=== PATIENT | female | born 1975 | race Caucasian/White ===

== ENCOUNTER → 2018-04-08 16:59 | Outpatient (CLI) | payer OTHER, SELFPAY ==
[2018-04-12 18:53] LABS: HPV APTIMA, High Risk Negative (Negative)
== END ==
PROVIDERS: Family Provider Student in an Organized Health Care Education/Training Program; PCP Student in an Organized Health Care Education/Training Program; Referring Provider Nurse Practitioner Women's Health; Visit Provider Nurse Practitioner Women's Health
DX: Z12.4 Encounter for screening for malignant neoplasm of cervix (principal)
CPT/HCPCS: 88175; G0145

== ENCOUNTER → 2018-07-20 09:44 | Outpatient (CLI) | payer OTHER, SELFPAY ==
--- NOTE | 2018-07-20 09:46 | BI_ITS ---
MAMMOGRAPHY - BILATERAL SCREENING REASON FOR EXAM: Female, 42 years old. Routine annual screening examination. PERTINENT HISTORY: Non-contributory. Remote left excisional breast biopsy. TECHNIQUE: Digital bilateral breast avery (3D mammographic acquisition) in the CC and MLO projections. 2-D mediolateral oblique (MLO) and craniocaudad (CC) views of both breasts were obtained. CAD: Full Field Digital Mammography with Computer Added Detection was performed. COMPARISON: Comparison is made with prior examination dated September 23, 2015 and September 15, 2013.. FINDINGS: Breast Composition: The breasts are extremely dense, which lowers the sensitivity of mammography. Surgical clips are seen in the axillary region of the left breast. This is unchanged. There is a 3.3 cm x 5.9 cm rounded well-defined nodular density in the superior retroareolar region of the right breast. Correlation with ultrasound is recommended. No other significant abnormalities are identified. BI/SCREENING MAMM (CAD), BILAT IMPRESSION: Stable appearance of the left breast. Findings suggestive by 5.9 cm x 3.3 cm rounded nodular density in the superior retroareolar region of the right breast. Correlation with ultrasound is recommended. ASSESSMENT CATEGORY: BIRADS Category 0: Incomplete. Need additional imaging evaluation. A letter regarding these results will be sent to the patient by the facility within 30 days. Approximately 10% of breast cancers are not detected by mammography. A normal mammogram should not delay biopsy of a clinically suspicious abnormality. [id number] Electronically Signed: Damian Rivera MD at 8:24 EST Tel [phone], Service support ,
== END ==
PROVIDERS: Family Provider Student in an Organized Health Care Education/Training Program; PCP Student in an Organized Health Care Education/Training Program; Referring Provider Obstetrics & Gynecology; Visit Provider Obstetrics & Gynecology
DX: Z12.31 Encounter for screening mammogram for malignant neoplasm of breast (principal)
CPT/HCPCS: 77063; 77067

== ENCOUNTER → 2018-07-26 15:19 | Outpatient (CLI) | payer OTHER, SELFPAY ==
--- NOTE | 2018-07-26 15:35 | US_ITS ---
STUDY: ULTRASOUND BREAST - RIGHT REASON FOR EXAM: Female, 42 years old. Abnormal screening mammogram. TECHNIQUE: Axial and longitudinal images of the RIGHT breast were performed with a high resolution ultrasound transducer. COMPARISON: Comparison is made with prior mammogram dated July 20, 2018. FINDINGS: RIGHT Breast: The mammographic abnormality corresponds to a 5.4 cm x 4 cm x 2 cm cyst. This is at the 12:00 position breast at 2 cm from the nipple. Small septation is seen. US/Breast Limited Unilateral IMPRESSION: The mammographic abnormality corresponds to a 5.4 cm x 4 cm x 2 cm cyst. ASSESSMENT CATEGORY: BIRADS Category 2: Benign. A letter regarding these results will be sent to the patient by the facility within 30 days. Electronically Signed: Damian Rivera MD at 9:08 EST Tel [phone], Service support ,
--- OUTSIDE RECORDS SUMMARY | 2018-09-30 05:22 | XMS RPT_ITS ---
:1975 Author Organization [facility] Care Team Providers Name Role Phone Christina Alvarez Attending Unavailable Dhruv Bateman Primary Care Unavailable Christina Alvarez Referring Unavailable Christina Alvarez Attending Unavailable Bateman, Dhruv Referring Unavailable Vicki Kwok Attending Unavailable Bateman, Dhruv Primary Care Unavailable Vicki Kwok Referring Unavailable Christina Alvarez Attending Unavailable Christina Alvarez Referring Unavailable Bateman, Dhruv Primary Care Unavailable PROBLEMS PROBLEMS DATE TYPE CONDITION / CODE ATTENDING STATUS SOURCE 04/09/2018 Unknown Z12.4 - Vicki Kwok Active [facility] Encounter for Community screening for Hospital malignant Repository neoplasm of cervix / Z12.4(ICD-10) PROCEDURES PROCEDURES No Procedure Records FoundRESULTS RESULTS BREAST LIMITED Observed: 07/26/2018 Status: F Source: [place] UNILATERAL 3:35 PM [facility] REPOSITORY [facility] Imaging Services [address] [place] [address] Breast Limited Unilateral MR#: [id number] Acct: [id number] Name: CECILIA BENTON Rep #: [id number] : 1975 F 42 From: Damian Rivera MD PCP: Dhruv Melgar DO Status: REG CLI Study: Breast Limited Unilateral Date of Exam: 07/26/18 Exam# [id number] Ordering Dr: Christina Alvarez MD STUDY: ULTRASOUND BREAST - RIGHT REASON FOR EXAM: Female, 42 years old. Abnormal screening mammogram. TECHNIQUE: Axial and longitudinal images of the RIGHT breast were performed with a high resolution ultrasound transducer. COMPARISON: Comparison is made with prior mammogram dated July 20, 2018. FINDINGS: RIGHT Breast: The mammographic abnormality corresponds to a 5.4 cm x 4 cm x 2 cm cyst. This is at the 12:00 position breast at 2 cm from the nipple. Small septation is seen. US/Breast Limited Unilateral IMPRESSION: The mammographic abnormality corresponds to a 5.4 cm x 4 cm x 2 cm cyst. ASSESSMENT CATEGORY: BIRADS Category 2: Benign. A letter regarding these results will be sent to the patient by the facility within 30 days. Electronically Signed: Damian Rivera MD at 9:08 EST Tel [phone], Service support , CC: Dhruv Melgar DO; Christina Alvarez MD Musical Instrument Supervisor: Signed SCREENING MAMM (CAD), Observed: 07/20/2018 Status: F Source: [place] BILAT 9:46 AM [facility] REPOSITORY [facility] Imaging Services [address] [place] [address] SCREENING MAMM (CAD), BILAT MR#: [id number] Acct: [id number] Name: CECILIA BENTON Rep #: [id number] : 1975 F 42 From: Damian Rivera MD PCP: Dhruv Melgar, DO Status: [facility] CLI Study: SCREENING MAMM (CAD), BILAT Date of Exam: 07/20/18 Exam# [id number] Ordering Dr: Christina Alvarez MD MAMMOGRAPHY - BILATERAL SCREENING REASON FOR EXAM: Female, 42 years old. Routine annual screening examination. PERTINENT HISTORY: Non-contributory. Remote left excisional breast biopsy. TECHNIQUE: Digital bilateral breast avery (3D mammographic acquisition) in the CC and MLO projections. 2-D mediolateral oblique (MLO) and craniocaudad (CC) views of both breasts were obtained. CAD: Full Field Digital Mammography with Computer Added Detection was performed. COMPARISON: Comparison is made with prior examination dated September 23, 2015 and September 15, 2013.. FINDINGS: Breast Composition: The breasts are extremely dense, which lowers the sensitivity of mammography. Surgical clips are seen in the axillary region of the left breast. This is unchanged. There is a 3.3 cm x 5.9 cm rounded well-defined nodular density in the superior retroareolar region of the right breast. Correlation with ultrasound is recommended. No other significant abnormalities are identified. BI/SCREENING MAMM (CAD), BILAT IMPRESSION: Stable appearance of the left breast. Findings suggestive by 5.9 cm x 3.3 cm rounded nodular density in the superior retroareolar region of the right breast. Correlation with ultrasound is recommended. ASSESSMENT CATEGORY: BIRADS Category 0: Incomplete. Need additional imaging evaluation. A letter regarding these results will be sent to the patient by the facility within 30 days. Approximately 10% of breast cancers are not detected by mammography. A normal mammogram should not delay biopsy of a clinically suspicious abnormality. 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 [place] [address] OFFICE VISIT Date of Service: 04/08/18 MR#: [id number] Acct: [id number] Name: CECILIA BENTON Rep #: [id number] : 1975 Provider: Christina Alvarez MD Age/Sex: 42/F Location: [facility] [place] Status: Signed Intake Vital Signs04/08/18 Height 5 ft 04/08/18 Weight: 141 lb 2 oz 04/08/18 Body Mass Index (BMI) 27.6 04/08/18 Blood Pressure 120/78 Intake Visit Reasons: ANNUAL - [facility] Backup Administrator Required: No Is patient in pain?: No Allergies cephalexin monohydrate [From Keflex] Allergy (Verified 04/08/18 14:07) Hives Medications Aspirin [Aspirin, Baby] 81 mg PO DAILY@0800 #90 tab.chew 04/10/14 [Rx Confirmed 04/08/18] Atorvastatin Calcium [Lipitor] 10 mg PO QHS #90 tab 04/10/14 [Rx Confirmed 05/07/14] Clopidogrel Bisulfate [Plavix] 75 mg PO DAILY #90 tab 04/10/14 [Rx Confirmed 04/08/18] Ondansetron [Zofran Odt] 8 mg PO Q8H PRN PRN #30 04/10/14 [Rx Confirmed 04/08/18] predniSONE tablet 60 mg PO DAILY #15 tab 05/07/14 [Rx Confirmed 04/08/18] Clindamycin HCl [Cleocin] 300 mg PO Q6H #40 cap 06/24/16 [Rx Confirmed 04/08/18] Is last menstrual period known: No Post menopausal: No [facility] : No [facility] Social History Smoking Status: Never smoker do you feel safe at home: Yes Pregancy History 2 Elective abortions Hx Para 2 Spontaneous abortions Past Pregnancies Del. DatName GA/WeeksOutcome Route [facility] David Manley LgAnesthesDel LocaProviderFOB e ht en tn Unknown Errol 1998 Unknown Yinka 2004 HPI ANNUAL - [facility] : Details: CECILIA BENTON is a 42 year old who presents for annual exam. Last PAP: unsure History of abnormal PAP: normal Last mammogram: due History of abnormal mammogram: Colon cancer screening: Other preventative health care screenings: pcp- dhruv bateman Female Reproductive History Cycle Length: >35 Control Method: mirena 2014 Questions: Sexually active: Yes, Dyspareunia: No, PCB: No ROS Const Constitutional: Reports as per HPI; denies poor appetite, fatigue, increased appetite, weight gain or weight loss Cardio Card: Denies chest pain Resp Resp: Denies dyspnea or cough GI GI: Reports as per HPI; denies bloating, abdominal pain, constipation, vomiting or nausea : Reports as per HPI and other; denies blood in urine, vaginal odor, vaginal itching, vaginal dryness, vaginal discharge, urinary urgency, urinary incontinence, urinary frequency, pelvic pain, painful urination, difficulty urinating, prolapse symptoms or nipple discharge Skin Skin/Breast: Denies breast pain, breast skin changes, nipple discharge, breast lump or changing lesions Exam Const General: cooperative, healthy appearing, comfortable, no acute distress, well developed, well groomed [facility] Head: normal to inspection, normocephalic Ears: hearing grossly normal bilaterally, external ears normal Nose: external nose normal Face and sinus: normal facial exam Neck Neck: normal visual inspection, full ROM, no lymphadenopathy Thyroid: thyroid normal Chest Chest palpation AND inspection: normal inspection of the chest Breast inspection: normal inspection of the breasts (cystic area superior), normal inspection of the axillae Breast palpation: normal palpation of the breasts, normal palpation of the axillae, no axillary lymphadenopathy Resp Effort AND Inspection: normal respiratory effort GI Inspection: normal to inspection, non-distended Palpation: no guarding, soft, no hepatosplenomegaly General: bladder normal to palpation External Female Exam: normal external appearance, normal appearance of the urethra, no lesions Urethra: normal appearance of the urethra, normal palpation Speculum Exam - Vagina: normal appearance of the vagina, normal vaginal discharge Speculum Exam - Cervix: normal appearance of the cervix, no cervical discharge, no lesions, nontender Bimanual Exam- Vagina AND Uterus: No cervical tenderness, normal bimanual exam, uterine size normal, bladder normal to palpation, uterine mobility normal, uterine consistency normal, uterus non-tender, no cervical motion tenderness Bimanual Exam- Adnexa, other: normal adnexae, no adnexal masses, adnexae non-tender Skin General: no rashes or lesions noted Neuro General: alert, moves all extremities, no focal motor deficits Extrem General: no pedal edema, normal to inspection Psych Appearance: grossly normal Mental Status: mental status grossly normal Affect: normal affect Speech and Movement: speech and movement normal Attitude: cooperative Assessment AND Plan Problems 1. Encounter for gynecological examination without abnormal finding Z01.419 Plan Cervical cancer screening: pap hpv Breast cancer screening: mamm other health maintenance examination reviewed and orders placed if needed. Encouraged maintenance of a healthy weight and active lifestyle and handout given. Annual exam handout including recommendations for good health guidelines, Calcium/vitamin D recommendations, and basic screening information given. Problem list up to date, see problem list details for any additional plan information. Follow up in one year for annual health maintenance exam or sooner if needed. Orders Orders: Coding Level of Care Code Off vis,est,prev 40-64yrs Diagnoses Encounter for gynecological examination without abnormal finding Z01.419 Gynecological examination findings: abnormal findings ABSENT 04/13/18 0613 <Electronically signed by Christina Alvarez MD> Date Christina Alvarez MD Cosigner Signature: Date (if applicable) CC: PAP IG HPV APTIMA Collected: 04/08/2018 Status: F Source: [place] 16/18,45 2:30 PM [facility] REPOSITORY Order Comment: CYTOLOGY INFORMATION: - CLINICAL INFORMATION: ANNUAL - DATE LMP/MENOPAUSE: - COLLECTION VIAL: Thin Prep Vial - ADMEASURER SOURCE: CERVICAL - COLLECTION TECHNIQUE: BRUSH/SPATULA Specimen Comment: [id number] Specimen Comment: Source.............Cervix Specimen Comment: No. of containers..01 ThinPrep Vial TYPE CODE TESTS RESULT OUT OF REFERENCE UNITS RANGE LAB L7400.0800 . High DIAGN Comment Result Comment: EPITHELIAL CELL ABNORMALITY. ATYPICAL SQUAMOUS CELLS OF UNDETERMINED SIGNIFICANCE. LAB L7400.0900 . Normal ADEQ Comment Result Comment: Satisfactory for evaluation. Endocervical and/or squamous metaplastic cells (endocervical component) are present. Areas of partially obscuring inflammtory exudate are present. LAB L7400.1400 . Normal PERFORM Comment Result Comment: Sallie Hargrove, Heating And Ventilating Tender (ASCP) LAB L7400.1700 . Normal SIGN Comment Result Comment: Shakir Dobson MD (Charles), Pathologist LAB L7400.1720 . Normal Path prov. Comment ICD9 Result Comment: R87.610 LAB L7400.2575 . Normal TEST METHOD Comment Result Comment: This liquid based ThinPrep(R) pap test was screened with the use of an image guided system. LAB L7400.2600 . Normal . COMM LAB L7400.2700 . Normal PAPSMR Comment Result Comment: The Pap smear is a screening test designed to aid in the detection of premalignant and malignant conditions of the uterine cervix. It is not a diagnostic procedure and should not be used as the sole means of detecting cervical cancer. Both false-positive and false-negative reports do occur. LAB L7400.2760 Negative Normal HPV APTIMA, Negative HR Result Comment: This test detects fourteen high-risk HPV types (16/18/31/33/35/39/45/ 51/52/56/58/59/66/68) without differentiation. Performed at: [address] [place] [id number] Fuel System Maintenance Supervisor: Chantel Esqueda MD, Phone: [phone] Performed at: [address] [id number] Fuel System Maintenance Supervisor: Gloria Melo MD, Phone: [phone] Performed at: =G - [facility] [address] [id number] Fuel System Maintenance Supervisor: Gloria Melo MD, Phone: [phone] Performed By: #### L7400.0280 #### [facility] (refer to report for specific site) refer to report for address and phone number ALLERGIES ALLERGIES DATE TYPE / CODE NAME / CODE REACTION SEVERITY SOURCE 04/08/2018 Drug cephalexin Hives Unknown [facility] Allergy/416 monohydrate/F0000 Community [id number]([facility] ED CT) Repository ENCOUNTERS ENCOUNTERS ADMIT/DISCHARGE ACCOUNT ADMITTING ENCOUNTER LOCATION SOURCE NUMBER CLASS 07/26/2018 [id number] Ambulatory [facility] 2 [facility] ing:OPUS Repository 07/20/2018 [id number] Ambulatory [place] 3 [facility] ing:OPBI Repository 04/08/2018 [id number] Ambulatory [place] [facility] ing:LABSPEC Repository 04/08/2018/ [id number] Ambulatory BMSBuilding:B [place] [facility] Repository PAYERS PAYERS ENCOUNTER GUARANTOR PAYER SUBSCRIBER SOURCE 07/26/2018 CRYSTAL K Primary CRYSTAL K [facility] [id number] Insurance:AETNAPolicy HABEGGERDOB: Community [place]: [id number] [id number] Repository [address]Unm: (330) Date:2654-44-84JN [phone] () [id number] [place] [address]: 07/26/2018 Secondary NOT GIVENUNK Moh[facility] Insurance:SELF PAY [facility] Number: Effective Repository Date:2018-07-23 07/20/2018 CRYSTAL K Primary CRYSTAL K [place] [id number] Insurance:AETNAPolicy HABEGGERDOB: Community [place] Number: [id number], [place] [id number] Repository 10[address]Std: (330) Date:5461-46-88KB [phone] () [id number] [address]TX: 07/20/2018 Secondary NOT GIVENUNK Moh[facility] Insurance:SELF PAY [facility]: Effective Repository Date:2018-04-08 04/08/2018 CRYSTAL Primary CRYSTAL [place] [id number] Insurance:AETNAPolicy HABEGGERDOB: Community [place] Number: [id number], [place] [id number] Repository [address]Rjh: (330) Date:3701-63-71VD [phone] () [id number] [address]OS: 04/08/2018 Secondary NOT GIVENUNK Mohsen Insurance:SELF PAY [facility] Number: Effective Repository Date:2018-04-08 04/08/2018 CRYSTAL Primary CRYSTAL Mohsen [id number] Insurance:AETNAPolicy HABEGGERDOB: Community [place] Number: [id number], [place] [id number] Repository [address]Onr: (330) Date:3719-65-34WN [phone] () [id number] [address]RW: 04/08/2018 Secondary NOT GIVENUNK Mohsen Insurance:SELF PAY [facility] Number: Effective Repository Date:2018-04-08
== END ==
PROVIDERS: Family Provider Student in an Organized Health Care Education/Training Program; PCP Student in an Organized Health Care Education/Training Program; Referring Provider Obstetrics & Gynecology; Visit Provider Obstetrics & Gynecology
DX: R92.8 Other abnormal and inconclusive findings on diagnostic imaging of breast (principal)
CPT/HCPCS: 76642

== ENCOUNTER 2019-03-09 17:54 | Emergency (ER) | payer OTHER, SELFPAY ==
[2019-03-09 17:55] VITALS: BP 140/88; PULSE 129; RESP 17; TEMP 36.7; O2SAT 94; BMI 25.9
--- NOTE | 2019-03-09 18:48 | ED.VIS.GEN ---
History of Present Illness Chief Complaint: Back Detail of Chief Complaint: Sciatica Informant: Patient Onset: Weeks Context: Gradual Onset Timing: Waxes and wanes Current Severity: Moderate Maximum Severity: Severe Narrative: Patient presents with sciatica to the right low back and leg for the past 3 weeks. 3 weeks ago she went to urgent care was diagnosed. She was given Flexeril and prednisone taper. She states this helped while she was on prednisone, but as soon as the medication stopped her pain returned. She is been to the chiropractor multiple times without significant improvement. She was seen by her primary care physician's nurse practitioner on the . She was given Mobic but states she stopped this because it was not doing anything. She did find some old prednisone in her cabinet and took 2 tablets yesterday and 2 tablets today. She also took 1 tab of Flexeril this evening. Patient denies any injury to her back. She states shortly before this started she was helping to replace the floor in her home. She was doing quite a bit of lifting and bending, but does not remember a specific injury wrist insult. Patient states the very end of her toes on her right foot feel numb today. She has had no problems with bowel or bladder control. Past Medical History - Allergies and Home Meds Allergies/Adverse Reactions: Allergies cephalexin monohydrate [From Keflex] Allergy (Verified 03/09/19 17:54) [facility] Primary Care Physician: Caridad Ybarra MD [Primary Care Provider] - 5-7 Days Prior records reviewed: Yes Past Medical History: - - Reviewed Surgical History: - - Breast lumpectomy Lives: With Family Smoking Status: Never smoker - Family History Maternal Family History: Reports: No pertinent history Paternal Family History: Reports: No pertinent history Additional Family History: Multiple family members with various forms of cancer including lung, GI, brain. Sibling Family History: Reports: No pertinent history Review of Systems General: Denies: Chills, Fever Eyes: Denies: Visual changes - bilaterally ENT: Denies: Bilateral ear pain Cardiovascular: Denies: Chest pain Respiratory: Denies: Dyspnea, Cough Gastrointestinal: Denies: Abdominal pain, Nausea, Vomiting, Diarrhea Genitourinary: Denies: Dysuria, Frequency Musculoskeletal: Reports: Back pain Skin: Denies: Rash Neurological: Reports: Parasthesia Endocrine: Denies: Polyuria, Polydipsia Hematologic: Denies: Easy bruising Allergy: Denies: Uticaria Physical Exam Vital Signs/Narrative: Vital Signs Temp Pulse Resp BP Pulse Ox 03/09/19 17:55 98.1 F 129 H 17 140/88 H 94 Inital Vital Signs reviewed: Yes General: Well nourished, Well developed Head: Normocephalic ENT: Moist mucous membranes Neck: Supple Cardiovascular: Regular rate, Regular rhythm Respiratory: No distress Abdomen: Soft, Nontender. Negative for: Mass Back: - - Reproducible tenderness over the right sciatic notch. No midline lumbar tenderness. Skin: Normal color Neurological: Alert, Oriented x3, Normal Strength, Normal Sensation, Normal DTR Psychological: Normal affect Diagnostic/Tx/Re-eval - Medical Decision Making It sounds like patient has had anti-inflammatories, steroids, muscle relaxers at different times throughout the last 3 weeks. I advised her that we would write her some stronger for pain along with an anti-inflammatory as well as Flexeril and prednisone. This combination together should help control her symptoms better. She states her chiropractor recommended she follow-up for MRI. I advised her that I cannot do this through the emergency room and she would need to see her primary care physician. She voices understanding and agreement. Patient had no direct injury to her back I do not feel imaging with x-rays would be beneficial, as it would not change our management. ED Disposition - Plan for ED Patient: Disposition: Home or Assisted Living Diagnosis: Sciatica Instructions: BACK PAIN w/ SCIATICA Prescriptions: cycloBENZAPRine HCl [Flexeril] 10 mg PO TID PRN #20 tab PRN Reason: Muscle Spasm Prescription Printed Naproxen [Naprosyn] 500 mg PO BID PRN PRN #20 tab PRN Reason: Pain Prescription Printed Hydrocodone Bitart/Apap 5-325 [[place] 5MG-325MG] 1 tab PO Q6H PRN PRN 3 Days #10 tab PRN Reason: Pain Prescription Printed Prednisone 10 mg PO DAILY #63 tab Prescription Printed Referrals: Caridad Ybarra MD [Primary Care Provider] - 5-7 Days
[2019-03-09] MEDS: HYDROcodone Bitartrate/Apap 5/325 Tablet PO (18:58)
[2019-03-09] MEDS: Naproxen 500 MG Tablet PO (18:58)
[2019-03-09] MEDS: predniSONE 20 MG Tablet 40 MG PO (18:58)
[2019-03-09 19:01] VITALS: RESP 16
== END 2019-03-09 19:01 | disposition home or self-care (01) ==
PROVIDERS: Emergency Provider Emergency Medicine; Family Provider Internal Medicine; PCP Internal Medicine
DX: M54.41 Lumbago with sciatica, right side (principal)
CPT/HCPCS: 99283

== ENCOUNTER 2019-07-04 16:30 | Outpatient (RCR) | payer OTHER, SELFPAY ==
[2019-05-29 09:26] VITALS: BMI 25.9
--- NOTE | 2019-06-25 14:58 | HP.PTEVAL_ITS ---
Patient's Visit Information CECILIA BENTON is a 43 year old F referred to Physical Therapy by TREVON SALCIDO with a diagnosis of LUMBAR DISC HERNIATION - RIGHT L4-5 MICRODISCECTOMY 05/31/19, L 4-5 05/14/19. Date of Evaluation: 06/25/19 Physical Therapist: Judy Alfaro, PT, Cert MDT - Visit Plan Frequency: 2-3x /Week Duration: 4-6 Weeks Plan: *10-15 LB LIFTING LIMIT*. *MONITOR INCISION*. POSTURE CORRECTION/STRENGTHENING, INSTRUCTION IN APPROPRIATE BODY MECHANICS AND ACTIVITY MODIFICATIONS. DLS STARTING WITH A NEUTRAL SPINE PROGRESSING ROM TOLERATED. CHRIS LE ROM, STRETCHING AND STRENGTHENING. HEP INSTRUCTION. *MINIMAL LIFTING > 10 LBS, BENDING, PUSHING, PULLING, TWISTING AND OVER HEAD EXTENSION FOR 4-6 WEEKS. 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 T ENTATIVE RTW DATE 07/03/19. Disability: NO. Present symptoms: INTERMITTENT LOW BACK TIGHTNESS. ITS JUST SORE. RIGHT LAT LEG AND FOOT NUMBNESS - CONSTANT - NOT CHANGING. Present since: JANUARY 2019. Pain Scale: WORST 3/10, LEAST 0/10. Currently: 07/18. Commenced as a result of: BENDING TO PUT IN A NEW FLOOR. Symptoms at onset: RIGHT BUTTOCK PAIN - PROGRESSED DOWN LEG. Worse: PROLONGED WALKING AND SITTING. Better: CHANGE OF POSITION OR ACTIVITY. Disturbed sleep: NO. Previous history/Previous treatment: BACK INJURY 20 YEARS AGO - GOT BETTER WITH CONSERVATIVE TREATMENT. THIS EPISODE STARTED WITH CHIROPRACTOR X 4 AND GOT WORSE. SURGERY FOR HERNIATION THEN 9 DAYS LATER IT RE- HERNIATED AND FUSION PERFORMED 2 WEEKS AFTER FIRST SURGERY. Coughing/sneezing/straining: NEGATIVE. Gait: NORMAL - DISTANCE AND TIME LIMITED. Difficulty initiating urinatin: NO. Accidents: NO. Unexplained weight loss: NO. Imaging: X-RAY SUNDAY OF LOW BACK - REPORTS SURGEON SAID EVERYTHING LOOKS GOOD. 10-15 LB LIFTING LIMIT CURRENTLY. STATES THE SURGEON WAS RELUCTANT TO RELEASE HER BACK TO WORK BUT WITH BEING OFF 12 WEEKS SHE NEEDS TO GET BACK. PMH: HIGH CHOLESTEROL, RAPID HEART RATE. H/O CVA APR 2014 - A RESULT OF TEARING TWO LIGAMENTS IN NECK MOVING SOMETHING HEAVY - FULL RECOVERY. - Objective Sitting/Standing Posture: FAIR. Lordosis: DECREASED. Lateral shift: NO. Relevant shift: N/A. Other Observations: INDEP GAIT AND TRANSFERS. DECREASED TRUNK ROTATION WITH GAIT. Motor deficit: CHRIS LE'S 5/5 WITH MMT'ING EXCEPT HIPS 4/5. Sensory deficit: CHRIS LE LIGHT TOUCH SENSATION INTACT AND SYMMETRICAL EXCEPT SMALL AREA PROX LATERAL RIGHT LEG. ROM deficit: TIGHT CHRIS HS'S. Reflexes: 2/3 CHRIS LE'S. Dural Signs: POSITIVE RIGHT LE. Lumbar mvmt loss: flex -MOD. ext - SOCO. R SG - SOCO. L SG - SOCO. Core strength: POOR - Goals Goal 1:: DECREASE C/O BACK AND RIGHT LE SX'S. Goal Time Frame: 4-6 Weeks Goal 2:: IMPROVE STANDING, WALKING, BENDING, LIFTING, AND WORK FUNCTION Goal Time Frame: 4-6 Weeks Goal 3:: INSTRUCT IN PROPHYLAXIS Goal Time Frame: 4-6 Weeks - Anticipated Interventions Patient/Client Instruction: Educate patient on: Condition, Plan of Care, Risk Factors, Benefits of Fitness Program For the Purpose of:: To improve self management Therapeutic Exercise to Include: Strength training, Body mechanics, Postural training, Flexibilty training, Dynamic Lumbar Stabilization For the Purpose of:: To decrease pain, To increase ROM, To improve muscle performance and motor function, To increase tolerance to activity/condition/position, To improve ability of physical actions for home/community/work/leisure Thank you for the opportunity to evaluate your patient. For Medicare and Medicare HMO plans, please review the plan of care and approve it. It will need to be FAXED BACK to us at [phone] for Medicare purposes. For Medicare only, by signing this I certify the plan of care. Please let me know if there are questions or concerns regarding this plan of care. Physician Signature: Date:
--- NOTE | 2019-09-12 09:11 | HP.PT.NRP ---
HP - Discharge Summary (1) - Patient Information CECILIA BENTON was seen in my office for initial evaluation on 06/25/19. The following Plan of Care was established for this patient: Initial Frequency: 2-3x /Week Initial Duration: 4-6 Weeks - Anticipated Interventions Patient/Client Instruction: Educate patient on: Condition, Plan of Care, Risk Factors, Benefits of Fitness Program For the Purpose of:: To improve self management Therapeutic Exercise to Include: Strength training, Body mechanics, Postural training, Flexibilty training, Dynamic Lumbar Stabilization For the Purpose of:: To decrease pain, To increase ROM, To improve muscle performance and motor function, To increase tolerance to activity/condition/position, To improve ability of physical actions for home/community/work/leisure This patient was last seen in our office 07/04/19. Pertinent comments regarding their Physical therapy will appear below: This patient has not returned to Physical Therapy and is appropriate to return to MD for further follow-up as needed. At this point I will be discontinuing this patient from physical therapy. I would be happy to see this patient again in the future if found appropriate by the physician. Thank you! Judy Alfaro, PT, Cert MDT
== END 2019-07-04 19:00 | disposition home or self-care (01) ==
LOC: PT 16:30
PROVIDERS: Family Provider Internal Medicine; PCP Internal Medicine
DX: M51.16 Intervertebral disc disorders with radiculopathy, lumbar region (principal)
CPT/HCPCS: 97110; 97162; 97530

== ENCOUNTER → 2019-07-21 15:29 | Outpatient (CLI) | payer BC, SELFPAY ==
[2019-05-29 09:26] VITALS: BMI 25.9
--- NOTE | 2019-07-21 15:33 | BI_ITS ---
MAMMOGRAPHY - BILATERAL SCREENING REASON FOR EXAM: Female, 43 years old. Routine annual screening examination. PERTINENT HISTORY: Non-contributory. Prior left excisional breast biopsy. TECHNIQUE: Digital bilateral breast anna (3D mammographic acquisition) in the CC and MLO projections. 2-D mediolateral oblique (MLO) and craniocaudad (CC) views of both breasts were obtained. CAD: Full Field Digital Mammography with Computer Added Detection was performed. COMPARISON: Comparison is made with prior examination dated December 18, 2018 and September 25, 2012. FINDINGS: Breast Composition: The breasts are extremely dense, which lowers the sensitivity of mammography. The previously seen nodular density in the superior retroareolar region of the right breast is not seen at this time. This is in keeping with the patient''s history of recent right breast aspiration. Surgical clips are once again seen in the deep upper outer aspect of the left breast with resultant postsurgical changes. No other significant abnormalities are identified. BI/SCREEN MAMM (CAD) W/ANNA BILAT IMPRESSION: Status post aspiration of the nodular density in the right breast as described. Yearly follow-up mammogram recommended. (A) ASSESSMENT CATEGORY: BIRADS Category 2: Benign. A letter regarding these results will be sent to the patient by the facility within 30 days. Approximately 10% of breast cancers are not detected by mammography. A normal mammogram should not delay biopsy of a clinically suspicious abnormality. [id number] Electronically Signed: Damian Rivera, at 8:24 EST , Service support ,
== END ==
PROVIDERS: Family Provider Internal Medicine; PCP Internal Medicine; Referring Provider Obstetrics & Gynecology; Visit Provider Obstetrics & Gynecology
DX: Z12.31 Encounter for screening mammogram for malignant neoplasm of breast (principal)
CPT/HCPCS: 77063; 77067

== ENCOUNTER → 2020-06-04 | Outpatient (CLI) | payer BC, SELFPAY ==
[2019-10-28 10:15] VITALS: BMI 27.1
[2020-06-09 16:56] LABS: HPV APTIMA, High Risk Negative (Negative)
== END | disposition home or self-care (01) ==
LOC: LABSPEC 15:39
PROVIDERS: PCP Internal Medicine; Visit Provider Obstetrics & Gynecology
DX: Z12.4 Encounter for screening for malignant neoplasm of cervix (principal)
CPT/HCPCS: 87624; 88175; G0145

== ENCOUNTER → 2020-08-09 12:05 | Outpatient (CLI) | payer BC, SELFPAY ==
[2019-10-28 10:15] VITALS: BMI 27.1
--- NOTE | 2020-08-09 12:07 | BI_ITS ---
MAMMOGRAPHY - BILATERAL SCREENING REASON FOR EXAM: Female, 44 years old. Routine annual screening examination. PERTINENT HISTORY: Non-contributory. Prior left excisional breast biopsy. TECHNIQUE: Digital bilateral breast anna (3D mammographic acquisition) in the CC and MLO projections. 2-D mediolateral oblique (MLO) and craniocaudad (CC) views of both breasts were obtained. CAD: Full Field Digital Mammography with Computer Added Detection was performed. COMPARISON: Comparison is made with prior study dated 07/21/2019 and 07/20/2018. FINDINGS: Breast Composition: The breasts are extremely dense, which lowers the sensitivity of mammography. There are no dominant masses or suspicious calcifications. Surgical clips are once again seen in the deep axillary region of the left breast and compared with a prior history of excisional breast biopsy. No other significant abnormalities are identified. There has been no significant change since the prior study. BI/SCRN MAMM (CAD)W/ANNA BILAT IMPRESSION: Stable bilateral screening mammogram. Yearly follow-up mammogram recommended. (A) ASSESSMENT CATEGORY: BIRADS Category 2: Benign. A letter regarding these results will be sent to the patient by the facility within 30 days. Approximately 10% of breast cancers are not detected by mammography. A normal mammogram should not delay biopsy of a clinically suspicious abnormality. [id number] Electronically Signed: Damian Rivera MD at 15:14 EST , Service support ,
== END ==
PROVIDERS: PCP Internal Medicine; Referring Provider Obstetrics & Gynecology; Visit Provider Obstetrics & Gynecology
DX: Z12.31 Encounter for screening mammogram for malignant neoplasm of breast (principal)
CPT/HCPCS: 77063; 77067

== ENCOUNTER 2021-08-15 12:59 | Outpatient (CLI) | payer BC, SELFPAY ==
--- NOTE | 2021-08-15 13:01 | BI_ITS ---
MAMMOGRAPHY - BILATERAL SCREENING REASON FOR EXAM: Female, 45 years old. Routine annual screening examination. PERTINENT HISTORY: Non-contributory. Remote left excisional breast biopsy. TECHNIQUE: Digital bilateral breast anna (3D mammographic acquisition) in the CC and MLO projections. 2-D mediolateral oblique (MLO) and craniocaudad (CC) views of both breasts were obtained. CAD: Full Field Digital Mammography with Computer Added Detection was performed. COMPARISON: Comparison is made with prior study dated 08/09/2020 and 07/21/2019. FINDINGS: Breast Composition: The breasts are extremely dense, which lowers the sensitivity of mammography. There are no dominant masses or suspicious calcifications. Once again, surgical clips are seen in the deep axillary region of the left breast in keeping with the history of prior left excisional breast biopsy. No other significant abnormalities are identified. There has been no significant change since the prior study. BI/SCRN MAMM (CAD)W/ANNA BILAT IMPRESSION: Stable bilateral screening mammogram. Yearly follow-up mammogram recommended. (A) ASSESSMENT CATEGORY: BIRADS Category 2: Benign. A letter regarding these results will be sent to the patient by the facility within 30 days. Approximately 10% of breast cancers are not detected by mammography. A normal mammogram should not delay biopsy of a clinically suspicious abnormality. [id number] Electronically Signed: Damian Rivera MD at 14:09 EST ,
== END 2021-08-15 23:59 | disposition home or self-care (01) ==
LOC: OPBI 13:00
PROVIDERS: PCP Internal Medicine; Referring Provider Obstetrics & Gynecology; Visit Provider Obstetrics & Gynecology
DX: Z12.31 Encounter for screening mammogram for malignant neoplasm of breast (principal)
CPT/HCPCS: 77063; 77067

== ENCOUNTER 2022-05-13 13:38 | Emergency (ER) | payer BC, SELFPAY ==
[2022-05-13 13:39] VITALS: BP 121/83; PULSE 99; RESP 16; TEMP 36.6; O2SAT 97; BMI 28.5
[2022-05-13] MEDS: Ibuprofen 600 MG Tablet PO (15:42)
[2022-05-13] MEDS: Lidocaine 5% Patch 1 PATCH TOPICAL (15:42)
[2022-05-13] MEDS: Morphine 4 MG/ML Syringe IM (15:43)
[2022-05-13] MEDS: diazePAM 5 MG Tablet PO (15:43)
--- NOTE | 2022-05-13 16:02 | ED.VIS.BACK ---
HPI History of Present Illness Chief Complaint: Back Informant: patient Narrative Narrative: Patient is a 46-year-old female with history of prior lumbar spinal surgery presenting with cute onset of right thoracic back pain and spasm. Patient states she had been using a leaf blower and had tripped over a large stick causing her to twist funny. She immediately had some left-sided back pain. She states it feels like a spasm. Is worse when she tries to move. Does not feel short of breath. She tried taking an old Flexeril with no relief of her symptoms. Did not take any else prior to arrival. No other complaints at this time. No associated numbness or tingling. No bowel or bladder dysfunction reported. [facility] Medical History (Updated 05/13/22 @ 18:[address] Elodia Osborn, DO) Atypical squamous cells of undetermined significance (ASCUS) on Papanicolaou smear of cervix Cyst, breast Hyperlipidemia Lumbar disc herniation Tachycardia Home Medications aspirin 81 mg chewable tablet 81 mg PO DAILY@0800 ##90 04/10/14 [Rx Last Taken Unknown] fenofibrate nanocrystallized 48 mg tablet 48 mg PO DAILY 03/09/19 [History Last Taken Unknown] metoprolol succinate 25 mg capsule sprinkle, ext. release 24 hr 12.5 mg PO DAILY 05/29/19 [History Last Taken Unknown] cholecalciferol (vitamin D3) 50 mcg (2,000 unit) capsule 50 mcg PO DAILY 06/04/20 [History Last Taken Unknown] levonorgestrel 20 mcg/24 hours (8 yrs) 52 mg intrauterine device (Mirena) 1 device intrauterine ONCE 06/04/20 [History Last Taken Unknown] multivitamin,[id number]-dcbx-dsagvcdi (Complete Multivitamin tablet) 1 tab PO DAILY 06/04/20 [History Last Taken Unknown] rosuvastatin 20 mg tablet (Crestor) 20 mg PO DAILY 08/15/21 [History Last Taken Unknown] cyclobenzaprine 10 mg tablet 10 mg PO TID PRN muscle spasm #20 tabs 05/13/22 [Rx Last Taken Unknown] ibuprofen 600 mg tablet 600 mg PO Q6H PRN PRN Pain Score 1-10 #20 tabs 05/13/22 [Rx Last Taken Unknown] Allergy/AdvReac Type Severity Reaction Status Date / Time cephalexin monohydrate Allergy Hives Verified 05/13/22 13:39 [From Keflex] Family History Grandfather Cancer Brother Diabetes Uncle Diabetes Grandmother Hypertension High cholesterol Mother Thyroid disorder Surgical History S/P lumbar spinal fusion Social History Smoking Status: Never smoker alcohol intake: never substance use type: does not use caffeine: Yes what type of physical activity do you participate in: none seatbelt use: always do you feel safe at home: Yes additional social history: -[employer] ROS ROS ED Constitutional Constitutional ED: Denies chills or fever(s) Eyes Eyes: Denies change in vision ENT ENT ED: Denies sore throat Cardiovascular Cardiovascular: Denies chest pain or palpitations Respiratory/Chest Respiratory/Chest: Denies dyspnea Gastrointestinal Gastrointestinal: Denies abdominal pain, nausea or vomiting Genitourinary Genitourinary ED: Denies dysuria or urinary frequency Musculoskeletal Musculoskeletal: Reports back pain Integumentary Denies rash Neurologic Neurologic: Denies headache(s), paresthesias or weakness Psychiatric Psychiatric: Denies anxiety Hematologic/Lymphatic Hematologic/Lymphatic: Denies easy bleeding or easy bruising EXAM Physical Exam Const Vital Signs: 05/13/22 13:39 Temperature 97.8 F Temperature Source Temporal Pulse Rate 99 Respiratory Rate 16 Blood Pressure 121/83 H Blood Pressure Mean 95 Pulse Ox 97 Oxygen Delivery Method Room Air Positive well nourished and well developed General Appearance ED: well developed and NAD HEENT Reports moist mucous membranes Negative for trauma Eyes PERRL and EOMs intact bilaterally Neck supple and no JVD Neck Narrative: Trachea midline Resp normal respiratory effort and clear to auscultation bilaterally Effort and Inspection: pain with movement Cardio regular rate, regular rhythm and no murmurs GI normal to inspection, nondistended, normoactive bowel sounds and soft to palpation Back/Spine normal to inspection General Back: Negative for CVA tenderness Cervical Spine: Negative for cervical spine tenderness and Negative for paracervical muscle tenderness Thoracic Spine / Upper Back: paraspinal muscle tenderness left Extremity normal to inspection Neuro oriented x3 and no sensory deficits noted Sensorium / Orientation: alert Motor Exam: strength 5/5 throughout Psych mental status grossly normal Skin no rashes or lesions noted and no wounds MDM MDM MDM Narrative Medical decision making narrative: Patient is evaluated for left-sided midthoracic back pain. Is paraspinal. No bony tenderness. Given the sudden onset of pain, x-ray obtained to rule out any acute fracture or rib fracture. This is negative. This interpreted by myself as well as radiology. Patient is given oral diazepam, IM morphine, ibuprofen and lidocaine patch in the ER. On repeat evaluation she is resting more comfortably. I suspect this is a muscle spasm. She is a normal neurologic exam. She is ambulating has a steady gait. She be discharged home with a new prescription for Flexeril as well as Motrin 600 mg. Counseled on return precautions. She verbalizes agreement to this plan. Follow-up with primary care physician. Radiography Diagnostic Testing: Clinical Impression(s) from Imaging Studies Ribs w/Chest X-Ray 05/13/22 16:18 IMPRESSION: RIBS: Normal x-ray examination of the ribs. CHEST: Normal x-ray examination of the chest. Electronically Signed: Don Del Cid DO at 16:53 EDT Reading Location ID and State: [address] [place] [address] Tel [phone], Service support , Discharge Plan Triage Chief Complaint: Back ED Provider: Elodia Osborn Dx/Rx/DC Orders Clinical Impression: Thoracic back pain, Muscle spasm Instructions: ED Back Sprain/Strain Prescriptions: New cyclobenzaprine 10 mg tablet 10 mg PO TID PRN (Reason: muscle spasm) Qty: 20 0RF ibuprofen 600 mg tablet 600 mg PO Q6H PRN PRN (Reason: Pain Score 1-10/10) Qty: 20 0RF No Action metoprolol succinate 25 mg capsule,sprinkle,ER 24hr 12.5 mg PO DAILY cholecalciferol (vitamin D3) 50 mcg (2,000 unit) capsule 50 mcg PO DAILY multivitamin,cd-aauh-stjxvois tablet 1 tab PO DAILY levonorgestrel 20 mcg/24 hours (5 yrs) 52 mg intrauterine device 20 mcg/24 hours (5 yrs) 52 mg intrauterine device 1 device INTRA-UTER ONCE Rx Instructions: as a single dose rosuvastatin [Crestor] 20 mg tablet 20 mg PO DAILY aspirin 81 MG tablet,chewable 81 mg PO DAILY@0800 Qty: 90 0RF fenofibrate nanocrystallized 48 MG tablet 48 mg PO DAILY Primary Care Provider: Caridad Ybarra Referrals: Caridad Ybarra MD [Primary Care Provider] - Activity Restrictions/Additional Instructions: Use sgtq-glm-[id number] 4% Lidoderm patches as well as warm heat in addition to the medications prescribed to help with the pain and spasm. Disposition Disposition: Home, Self Care
--- NOTE | 2022-05-13 16:18 | RAD_ITS ---
STUDY: X-RAY - UNILATERAL RIBS ( RIGHT ) WITH CHEST REASON FOR EXAM: Female, 46 years old. Right sided posterior back pain after blowing leads today. History of previous spinal surgery. TECHNIQUE - RIBS: 4 view(s) of the ribs. TECHNIQUE - CHEST: Single PA view of the chest. COMPARISON: None. FINDINGS - RIBS: Normal visualized ribs without a demonstrated fracture. FINDINGS - CHEST: The lungs are clear and expanded. There is no demonstrated pleural abnormality. No pneumothorax. Normal size heart. Normal mediastinum and leonor. Normal visualized pulmonary arteries. Normal visualized aortic arch and descending thoracic aorta. Normal visualized thoracic spine. Normal visualized ribs, clavicles, and shoulders. There is no demonstrated abnormality of the visualized soft tissue structures of the upper abdomen. RAD/Ribs Uni Min 3V w/PA Chest IMPRESSION: RIBS: Normal x-ray examination of the ribs. CHEST: Normal x-ray examination of the chest. Electronically Signed: Don Del Cid DO at 16:53 EDT ,
[2022-05-13 18:02] VITALS: BP 109/74; PULSE 62; RESP 18; O2SAT 100
== END 2022-05-13 18:16 | disposition home or self-care (01) ==
PROVIDERS: Emergency Provider Emergency Medicine; PCP Internal Medicine; Visit Provider Emergency Medicine
DX: M54.6 Pain in thoracic spine (principal); M62.838 Other muscle spasm; E78.5 Hyperlipidemia, unspecified
CPT/HCPCS: 71101; 96372; 99283

== ENCOUNTER → 2022-08-24 | Outpatient (CLI) | payer BC, SELFPAY ==
--- NOTE | 2022-08-24 15:26 | BI_ITS ---
MAMMOGRAPHY - BILATERAL SCREENING REASON FOR EXAM: Female, 46 years old. Routine annual screening examination. PERTINENT HISTORY: Non-contributory. Remote left excisional breast biopsy. TECHNIQUE: Digital bilateral breast anna (3D mammographic acquisition) in the CC and MLO projections. 2-D mediolateral oblique (MLO) and craniocaudad (CC) views of both breasts were obtained. CAD: Full Field Digital Mammography with Computer Added Detection was performed. COMPARISON: Comparison is made with prior study dated 08/15/2021 and 08/09/2020. FINDINGS: Breast Composition: The breasts are extremely dense, which lowers the sensitivity of mammography. There are no dominant masses or suspicious calcifications. Surgical clips are seen in the axillary tail of the left breast with resultant postoperative scarring and skin thickening. No other significant abnormalities are identified. There has been no significant change since the prior study. BI/SCRN MAMM (CAD)W/ANNA BILAT IMPRESSION: Stable bilateral screening mammogram. Yearly follow-up mammogram recommended. (A) ASSESSMENT CATEGORY: BIRADS Category 2: Benign. A letter regarding these results will be sent to the patient by the facility within 30 days. Approximately 10% of breast cancers are not detected by mammography. A normal mammogram should not delay biopsy of a clinically suspicious abnormality. [id number] Electronically Signed: Damian Rivera MD at 17:11 EST ,
== END | disposition home or self-care (01) ==
LOC: OPBI 15:24
PROVIDERS: PCP Internal Medicine; Visit Provider Obstetrics & Gynecology
DX: Z12.31 Encounter for screening mammogram for malignant neoplasm of breast (principal)
CPT/HCPCS: 77063; 77067

== ENCOUNTER → 2023-10-15 | Outpatient (CLI) | payer BC, SELFPAY ==
--- NOTE | 2023-10-15 13:43 | BI_ITS ---
MAMMOGRAPHY - BILATERAL SCREENING REASON FOR EXAM: Female, 47 years old. Routine annual screening examination. PERTINENT HISTORY: Non-contributory. Remote left excisional breast biopsy and right breast aspiration. TECHNIQUE: Digital bilateral breast anna (3D mammographic acquisition) in the CC and MLO projections. 2-D mediolateral oblique (MLO) and craniocaudad (CC) views of both breasts were obtained. CAD: Full Field Digital Mammography with Computer Added Detection was performed. COMPARISON: Comparison is made with prior study August 24, 2022 and August 15, 2021. FINDINGS: Breast Composition: The breasts are extremely dense, which lowers the sensitivity of mammography. There are no dominant masses or suspicious calcifications. Surgical clips are seen in the axillary tail of the left breast. Resultant postoperative scarring. No other significant abnormalities are identified. There has been no significant change since the prior study. BI/SCRN MAMM (CAD)W/ANNA BILAT IMPRESSION: Stable bilateral screening mammogram. Yearly follow-up mammogram recommended. (A) ASSESSMENT CATEGORY: BIRADS Category 2: Benign. A letter regarding these results will be sent to the patient by the facility within 30 days. Approximately 10% of breast cancers are not detected by mammography. A normal mammogram should not delay biopsy of a clinically suspicious abnormality. [id number] Electronically Signed: Damian Rivera MD at 15:35 EDT ,
== END | disposition home or self-care (01) ==
LOC: OPBI 13:43
PROVIDERS: PCP Internal Medicine; Referring Provider Obstetrics & Gynecology; Visit Provider Obstetrics & Gynecology
DX: Z12.31 Encounter for screening mammogram for malignant neoplasm of breast (principal)
CPT/HCPCS: 77063; 77067

== ENCOUNTER → 2024-10-20 | Outpatient (CLI) | payer OTHER, SELFPAY ==
--- NOTE | 2024-10-20 13:45 | BI_ITS ---
EXAM: SCRN MAMM (CAD)W/ANNA BILAT DATE: 10/20/2024 CLINICAL HISTORY: F, Age 48 y/o , SCREENING History of prior right breast cyst aspirations. History of left breast lumpectomy for a benign process. BREAST CANCER RISK ASSESSMENT: Has not been calculated. TECHNIQUE: Bilateral screening digital breast tomosynthesis with 2D and 3D images. Computer aided detection. COMPARISON: Prior exam(s) dated 10/15/2023 and 08/24/2022. FINDINGS: TISSUE DENSITY: The breast tissue is extremely dense which lowers the sensitivity of mammography. Bilateral Breast Mammographic Findings: Partially obscured, isodense masses are seen in the retroareolar region and superior aspect of the right. The largest mass measures 3.8 cm. 1 of these masses appears larger when compared to the prior exam. Further workup indicated. Architectural distortion, increased density and surgical clips in the superior outer aspect of the left breast at the post lumpectomy site. This appears stable. There are no suspicious masses, suspicious microcalcifications or secondary sign of malignancy identified in the left breast. BI/SCRN MAMM (CAD)W/ANNA BILAT IMPRESSION: Right Breast: BIRADS 0 Incomplete: Need additional imaging evaluation and/or pr ior mammograms for comparison.. Left Breast: BIRADS 2 BENIGN FINDING. OVERALL FINAL ASSESSMENT: BIRADS 0 Incomplete: Need additional imaging evaluati on and/or prior mammograms for comparison. RECOMMENDATION: Incomplete: Need additional imaging evaluation and/or prior mammograms for comp arison. Patient should return for an LM view of the right breast as well as spot compression CC and spot compression MLO views of the right breast masses. An ultrasound will also most likely be needed. A letter with findings and recommendations will be mailed to the patient. Reading Location: [id number]
== END | disposition home or self-care (01) ==
PROVIDERS: PCP Internal Medicine; Referring Provider Obstetrics & Gynecology; Visit Provider Obstetrics & Gynecology
DX: Z12.31 Encounter for screening mammogram for malignant neoplasm of breast (principal)
CPT/HCPCS: 77063; 77067

== ENCOUNTER → 2024-10-23 | Outpatient (CLI) | payer OTHER, SELFPAY ==
--- NOTE | 2024-10-23 13:48 | US_ITS ---
PROCEDURE: BREAST LIMITED UNILATERAL 10/23/2024 REASON FOR EXAM: RT BREAST MASSES RETROAREOLAR TECHNIQUE: Targeted right breast ultrasound. COMPARISON: Comparison is made with prior mammogram done earlier in the day. FINDINGS: Right breast ultrasound was targeted to the retroareolar region.. The mammographic abnormality corresponds to a 6.4 cm 4.9 cm x 1.6 cm cyst. Slight echogenic debris seen within it suggestive of proteinaceous material. US/Breast Limited Unilateral IMPRESSION: Impression: Large retroareolar cyst. Birads: BI-RADS 2: BENIGN. RECOMMEND ANNUAL MAMMOGRAPHIC SCREENING. Reading Location: [place] [id number]
--- NOTE | 2024-10-23 13:48 | BI_ITS ---
PROCEDURE: DIAG MAMM W/CAD, UNILAT REASON FOR EXAM: F, Age 49 y/o , RT BREAST MASSES RETROAREOLAR COMPARISON: Prior exam(s) dating back to mammogram dated October 20, 2024.. TECHNIQUE: Right diagnostic digital breast tomosynthesis with 2D and 3D images. Compression spot views obtained. Computer aided detection. FINDINGS: TISSUE DENSITY: The breast is extremely dense which lowers the sensitivity of mammography. Persistent nodular densities in the retroareolar region of the right breast. Sonographic correlation recommended. BI/DIAG MAMM W/CAD, UNILAT IMPRESSION: Persistent nodular densities in the retroareolar region of the right breast. S onographic correlation recommended. BI-RADS 0: INCOMPLETE - NEED ADDITIONAL IMAGING EVALUATION. Reading Location: [place] [id number]
== END | disposition home or self-care (01) ==
PROVIDERS: PCP Internal Medicine; Referring Provider Obstetrics & Gynecology; Visit Provider Obstetrics & Gynecology
DX: N63.41 Unspecified lump in right breast, subareolar (principal)
CPT/HCPCS: 76642; 77065

== ENCOUNTER → 2024-11-18 | Outpatient (CLI) | payer OTHER, SELFPAY | END | disposition home or self-care (01) | LOC: LABSPEC 15:41 | PROVIDERS: PCP Internal Medicine; Referring Provider Obstetrics & Gynecology; Visit Provider Obstetrics & Gynecology | DX: Z12.4 Encounter for screening for malignant neoplasm of cervix (principal) | CPT/HCPCS: 87624; 88175; G0145 ==